=== PATIENT | female | born 1980 | race Two or more races ===

== ENCOUNTER 2023-09-03 01:43 | Emergency (ER) | payer MEDICAID, OTHER ==
[~2023-09-03] VITALS: Ht 157.5 cm; Wt 50.7 kg
[2023-09-03 02:00] VITALS: BP 137/81; PULSE 95; RESP 18; O2SAT 98
[2023-09-03] MEDS ORDERED: HYDROcodone-ACET 5/325MG TAB PO ONE (03:30)
[2023-09-03] MEDS ORDERED: BACDST PO (03:33)
[2023-09-03] MEDS ORDERED: HYDR-4902 PO (03:33)
[2023-09-03] MEDS ORDERED: IBUP-1455 PO (03:33)
== END 2023-09-03 06:00 | disposition home or self-care (01) ==
LOC: ER 01:43
DX: L02.31 Cutaneous abscess of buttock (principal)
CPT/HCPCS: 10060

== ENCOUNTER 2023-09-03 21:43 | Emergency (ER) | payer MEDICAID ==
[~2023-09-03] VITALS: Ht 157.5 cm; Wt 50.0 kg
[~2023-09-03 21:43] MED LIST: BACDST PO; HYDR-4902 PO; IBUP-1455 PO
[2023-09-04] MEDS: cefTRIAXone SOD 1,000 MG VL IM ONE (01:24)
[2023-09-04 01:42] VITALS: BP 129/78; PULSE 93; RESP 20; TEMP 98; O2SAT 98
== END 2023-09-04 01:42 | disposition home or self-care (01) ==
LOC: ER 21:43
DX: S31.819D Unspecified open wound of right buttock, subsequent encounter (principal); Z48.00 Encounter for change or removal of nonsurgical wound dressing; X58.XXXD Exposure to other specified factors, subsequent encounter
CPT/HCPCS: 96372; 99283; J0696

== ENCOUNTER 2023-12-16 02:06 | Emergency (ER) | payer MEDICAID | END 2023-12-16 03:39 | disposition left against medical advice (07) | LOC: ER 02:06 | DX: L02.91 Cutaneous abscess, unspecified (principal); Z53.21 Procedure and treatment not carried out due to patient leaving prior to being seen by health care provider ==